=== PATIENT | female | born 1955 | race Caucasian/White ===

== ENCOUNTER 2020-06-11 17:15 | Outpatient (RCR) | payer OTHER, SELFPAY ==
[2020-06-11] MEDS: COVID-19 VACC, MRNA(PFIZER)/PF 30 MCG/0.3 ML SYRINGE IM (09:44)
[2020-07-02] MEDS: COVID-19 VACC, MRNA(PFIZER)/PF 30 MCG/0.3 ML SYRINGE IM (09:31)
== END 2020-09-03 23:59 ==
LOC: IMMUN 17:15
PROVIDERS: PCP Nurse Practitioner Primary Care; Visit Provider Family Medicine
DX: Z23 Encounter for immunization (principal)
CPT/HCPCS: 0001A; 0002A; 91300